=== PATIENT | female | born 1965 | race Caucasian/White ===

== ENCOUNTER → 2016-07-30 | Outpatient (CLI) | payer BC ==
--- NOTE | ~2016-07-30 | MR32 ---
[facility] A Service of [facility] / [facility] RADIOLOGY TEXT RESULTS PATIENT: JAKE WINTER LOCATION: [facility] : [birth year] UNIT #: [id number] AGE: [address]: Zhang Gandhi MD SEX: F ORDER DR: [id number] [place] [id number] O MR#: [id number] Acc #: [id number] NAME: JAKE WINTER : 1965 SEX: F STUDY DATE/TIME: 07/30/2016 UNIT: [facility] ROOM: STUDY DESCRIPTION: MR Cervical Wo Contrast Attending Physician: Zhang Gandhi M.D. Referring Physician: Zhang Gandhi M.D. Ordering Physician: Zhang Gandhi M.D. Primary Care Physician: Lisa Chi M.D. MRI CENTER REPORT This report is preliminary unless electronic signature is present. EXAM MRI of the cervical spine without contrast HISTORY Arthritis. No known injury or surgery. Patient complaints of increasing neck pain, especially left-sided into the trapezius area for 5 days with limited range of motion and left upper extremity motor weakness. Multiple level facet arthritis. COMMENT MRI of the cervical spine was performed without contrast using routine 1.5T wide-bore imaging technique. COMPARISON Plain films are from 07/30/2016. They are from [facility]. FINDINGS There is mild reversal of lower cervical lordosis. Multiple level cervical intervertebral disc desiccation and endplate spondylosis. No endplate degenerative changes are present most apparent at C6-7 predominantly type 1 and 2. Otherwise, bone marrow signal intensity is unremarkable. The cervical cord is normal in size and there is no reproducible focus of cord signal abnormality. There is no Chiari-1 malformation. Endplate spondylosis is most apparent at C6-7 and to a lesser extent C5-6, C7-T1, and there is associated loss of intervertebral disc height most apparent at C6-7. At C2-3, there is focal posterior osteophyte formation and probably a disc protrusion near midline with flattening of the anterior thecal sac. It is overall more prominent to the left than the right side. There is some STS. [facility] A Service of [facility] / [facility] RADIOLOGY TEXT RESULTS PATIENT: JAKE WINTER LOCATION: [facility] : [birth year] UNIT #: [id number] AGE: [address]: Zhang Gandhi MD SEX: F ORDER DR: facet degenerative change on the left and mild left-side foraminal narrowing. There is effacement of the left anterior thecal sac but no significant central canal stenosis. At C3-4, there is [id number] bilateral facet degenerative change with mild concentric disc bulge and endplate spondylosis. Mild effacement of the anterior thecal sac, mild left side foraminal narrowing. At C4-5, there is quite severe asymmetric left-sided facet degenerative change. Mild concentric disc osteophyte complex with left greater than right side uncovertebral osteophyte formation. There is mild cord flattening and very mild canal compromise and there is very severe left-sided foraminal impingement. At C5-6, very severe asymmetric left side facet degenerative change with some uncovertebral osteophyte formation on the left. There is concentric disc osteophyte complex with mild flattening of the anterior cord and mild canal stenosis. There is severe left-sided foraminal impingement. At C6-7, moderate concentric disc osteophyte complex with left greater than right-sided uncovertebral osteophyte formation. Posterior disc osteophyte is more prominent in the left paramedian to posterolateral location and there is [id number] cord flattening and canal compromise, worse to the left of midline. There is sever left and moderate right side foraminal impingement. There is also impingement upon the entry zone of the left 6-7 foramen. At C7-T1, there is a concentric disc bulge with a superimposed left paramedian to posterolateral extrusion remaining contiguous with the disc extending slightly caudad from the disc. This impinges upon the left-sided C7-T1 foramen and foraminal entry zone. Mild effacement of the left anterior thecal sac but no central canal stenosis. Severe left 7-1 foraminal impingement. IMPRESSION 1. There is significant multiple level cervical degenerative disease. Cord flattening and canal stenosis is most prominent at C6-7 where it is [id number], asymmetrically worse to the left side. 2. There is multiple level foraminal impingement. In general, it is asymmetrically severe on the left side. Please refer to the [id number] discussion and correlate with the patient's symptoms. No reproducible focus cord signal abnormality is seen. STAT * RESULT [facility] A Service of [facility] RADIOLOGY TEXT RESULTS PATIENT: JAKE WINTER LOCATION: [facility] : [birth year] UNIT #: [id number] AGE: [address]: Zhang Gandhi MD SEX: F ORDER DR: Dictated by... Emily Ferrer M.D. THIS IS AN ELECTRONICALLY VERIFIED REPORT Emily Ferrer M.D. at 08/03/2016 7:33 PM CHELE/jaylene TD: 07/30/2016 16:06 JOB #: [id number] MRI CENTER REPORT Page 1 of 1
== END | disposition home or self-care (01) ==
LOC: SMRI 14:03
DX: M46.92 Unspecified inflammatory spondylopathy, cervical region (principal); M62.81 Muscle weakness (generalized)
CPT/HCPCS: 72141